=== PATIENT | male | born 1955 | race African-American/Black ===

== ENCOUNTER 2021-05-29 10:52 | Emergency (ER) | payer OTHER, BC ==
[~2021-05-29] VITALS: Ht 188 cm; Wt 108.4 kg
[2021-05-29] MEDS ORDERED: METHOCARBAMOL 750 MG TAB PO ONE (11:30)
[2021-05-29] MEDS ORDERED: HYDROCODONE/APAP 5MG-325MG TAB PO ONE (11:30)
[2021-05-29] MEDS ORDERED: ANAPROX DS550 MG PO (12:18)
[2021-05-29] MEDS ORDERED: PREDNISONE50 MG PO (12:19)
[2021-05-29] MEDS ORDERED: METHOCARBAMOL750 MG PO (12:19)
== END 2021-05-29 12:45 | disposition home or self-care (01) ==
LOC: ER 11:21
DX: M54.12 Radiculopathy, cervical region (principal); R73.03 Prediabetes; Y93.89 Activity, other specified; Y92.69 Other specified industrial and construction area as the place of occurrence of the external cause
CPT/HCPCS: 72040; 99283

== ENCOUNTER 2024-02-03 13:25 | Inpatient (IN) | payer BC, MEDICARE, OTHER ==
[~2024-02-03] VITALS: Ht 188 cm; Wt 113.9 kg
[2024-02-03] VITALS (23 sets, daily range): BP systolic 81–162; BP diastolic 54–131; PULSE 30–110; RESP 17–42; TEMP 97–98.8; O2SAT 96–100
[~2024-02-03 13:25] MED LIST: ANAPROX DS550 MG PO; METHOCARBAMOL750 MG PO; PREDNISONE50 MG PO
[2024-02-03] MEDS ORDERED: SODIUM CHLORIDE 0.9% 1000ML 1,000 ML IV SCH (13:30)
[2024-02-03] MEDS ORDERED: NITROGLYCERIN/D5W 200 MCG/ML 250 ML ONE (14:03)
[2024-02-03] MEDS ORDERED: FUROSEMIDE INJ 10 MG/ML 2 ML VIAL ONE (14:03)
[2024-02-03] MEDS ORDERED: NITROGLYCERIN 2% OINT 1 GM PKT ONE (14:07)
[2024-02-03 14:13] LABS: BASOPHILS # (AUTO) 0.1 (0.0-0.1); BASOPHILS % 0.6 % (0.0-1.0); HEMATOCRIT 53.2 % (38.2-49.6); HEMOGLOBIN 17.3 g/dL (14.0-18.0); LYMPHOCYTES # (AUTO) 4.5 (1.0-3.2); MEAN CORPUSCULAR HEMOGLOBIN 27.8 pg (28-32); MEAN CORPUSCULAR HGB CONC 32.5 g/dL (31-35); MEAN CORPUSCULAR VOLUME 85.5 fL (81-99); MONOCYTES # (AUTO) 1.6 (0.2-0.8); NEUTROPHILS # (AUTO) 4.6 (2.1-6.9); NEUTROPHILS % 42.7 % (38.7-80.0); PLATELET COUNT 225 x10e3/uL (140-360); RED BLOOD COUNT 6.22 x10e6/uL (4.3-5.7); RED CELL DISTRIBUTION WIDTH 18.9 % (11.7-14.4); WHITE BLOOD COUNT 10.89 x10e3/uL (4.8-10.8)
[2024-02-03] MEDS: NITROGLYCERIN/D5W 200 MCG/ML 250 ML IV SCH (14:16)
[2024-02-03] MEDS ORDERED: KETOROLAC TROMETHAMINE 30 MG/ML VIAL ONE (14:23)
[2024-02-03] MEDS: KETOROLAC TROMETHAMINE 30 MG/ML VIAL IV STA (14:23)
[2024-02-03 14:30] LABS: ALBUMIN 3.9 g/dL (3.5-5.0); ALBUMIN/GLOBULIN RATIO 0.9 (0.8-2.0); ANION GAP 26.4 mmol/L (8-16); BILIRUBIN,TOTAL 0.7 mg/dL (0.2-1.2); CALCIUM 9.4 mg/dL (8.4-10.2); CREATININE, SERUM 1.36 mg/dL (0.72-1.25); TOTAL PROTEIN 8.4 g/dL (6.5-8.1)
[2024-02-03 14:32] LABS: POTASSIUM 3.4 mmol/L (3.5-5.1)
[2024-02-03 14:36] LABS: TROPONIN I 0.292 ng/mL (0-0.300)
[2024-02-03] MEDS ORDERED: LORAZEPAM INJ 2 MG/ML VIAL ONE (14:36)
[2024-02-03 14:41] LABS: INFLUENZAE A&B ANTIGEN (RAPID) NEGATIVE (NEGATIVE); RESPIRATORY SYNC. VIRUS NEGATIVE (NEGATIVE)
[2024-02-03] MEDS: FUROSEMIDE INJ 10 MG/ML 4 ML VIAL IV ONE (15:30)
[2024-02-03] MEDS: LORAZEPAM INJ 2 MG/ML VIAL IV ONE (15:31)
[2024-02-03 16:09] LABS: ANISOCYTOSIS SLIGHT; BASOPHILS % (MANUAL) 1 % (0-1.5); LYMPHOCYTES % (MANUAL) 45 % (19-48); MONOCYTES % (MANUAL) 12 % (3.4-9.0); NEUTROPHILS % (MANUAL) 36 % (40-74); REACTIVE LYMPHOCYTES 6
[2024-02-03 16:10] LABS: PLATELET ESTIMATE ADEQUATE; PLATELET MORPHOLOGY COMMENT NORMAL; RBC MORPHOLOGY COMMENT ABNORMAL; STOMATOCYTES MODERATE
[2024-02-03 16:13] LABS: ABG PCO2 50 mmHg (35-45); ABG PH 7.33 (7.35-7.45); ABG PO2 225 mmHg (80-105)
[2024-02-03 16:14] LABS: ABG HCO3 26 mmol/L (22-26); ABG TCO2 28
[2024-02-03] MEDS ORDERED: MELOXICAM7.5 MG PO (18:24)
[2024-02-03] MEDS ORDERED: MIRTAZAPINE15 MG PO (18:31)
[2024-02-03] MEDS ORDERED: QUETIAPINE FUM100 MG PO (18:31)
[2024-02-03] MEDS ORDERED: DIOVAN160 MG PO (18:31)
[2024-02-03] MEDS ORDERED: HYDROCHLOROTHIA25 MG PO (18:31)
[2024-02-03] MEDS ORDERED: ASPIRIN EC81 MG PO (18:31)
[2024-02-03] MEDS ORDERED: FINASTERIDE5 MG PO (18:36)
[2024-02-03] MEDS ORDERED: TESTOSTERO200 MG/1 M IM (18:36)
[2024-02-03] MEDS ORDERED: ROSUVASTATIN (18:36)
[2024-02-03] MEDS ORDERED: ZETIA10 MG PO (19:01)
[2024-02-03] MEDS ORDERED: GABAPENTIN100 MG PO (19:05)
[2024-02-03] MEDS ORDERED: SIMVASTATIN40 MG PO (19:08)
[2024-02-03] MEDS ORDERED: ROSUVASTATIN CA40 MG PO (19:18)
[2024-02-03] MEDS ORDERED: HYDROCODON-ACE1 EAC9 PO (19:20)
[2024-02-03] MEDS ORDERED: HYDROCHLOROTHIA25 MG (19:27)
[2024-02-03] MEDS ORDERED: IBUPROFEN800 MG PO (19:59)
[2024-02-03] MEDS ORDERED: GABAPENTIN300 MG PO (20:00)
[2024-02-03] MEDS: CARVEDILOL 12.5 MG TAB PO SCH (20:10)
[2024-02-03] MEDS ORDERED: ACETAMINOPHEN 325 MG TAB PO PRN (22:00)
[2024-02-03] MEDS ORDERED: MELATONIN 3 MG TAB PO PRN (22:00)
[2024-02-03] MEDS ORDERED: MAGNESIUM/ALUMINUM/SIMETHICONE 30 ML UDC PO PRN (22:00)
[2024-02-03] MEDS ORDERED: HYDRALAZINE HCL 20 MG/ML VIAL IV PRN (22:00)
[2024-02-03] MEDS ORDERED: GUAIFENESIN/DEXTROMETHORPHAN LIQD 5 ML UDC PO PRN (22:00)
[2024-02-03] MEDS ORDERED: ONDANSETRON HCL INJ 2MG/ML 2ML 2 MG/ML VIAL IV PRN (22:00)
[2024-02-04] VITALS (81 sets, daily range): BP systolic 66–229; BP diastolic 45–195; PULSE 47–134; RESP 19–45; TEMP 98.4–100.3; O2SAT 90–100
[2024-02-04 06:38] LABS: BASOPHILS % 0.3 % (0.0-1.0); EOSINOPHILS % 0.1 % (0.0-6.0); HEMATOCRIT 44.8 % (38.2-49.6); HEMOGLOBIN 14.8 g/dL (14.0-18.0); LYMPHOCYTES # (AUTO) 2.2 (1.0-3.2); LYMPHOCYTES % 29.2 % (18.0-39.1); MEAN CORPUSCULAR HEMOGLOBIN 27.9 pg (28-32); MEAN CORPUSCULAR VOLUME 84.5 fL (81-99); MONOCYTES # (AUTO) 0.6 (0.2-0.8); NEUTROPHILS # (AUTO) 4.7 (2.1-6.9); PLATELET COUNT 176 x10e3/uL (140-360); WHITE BLOOD COUNT 7.58 x10e3/uL (4.8-10.8)
[2024-02-04 07:00] LABS: ANION GAP 15.9 mmol/L (8-16); CALCIUM 8.7 mg/dL (8.4-10.2); CREATININE, SERUM 0.89 mg/dL (0.72-1.25); POTASSIUM 3.9 mmol/L (3.5-5.1)
[2024-02-04] MEDS: EZETIMIBE 10 MG TAB PO SCH (08:06)
[2024-02-04] MEDS: MULTIVITAMINS/MINERALS TAB PO SCH (08:06)
[2024-02-04] MEDS: HYDROCODONE/APAP 5MG-325MG TAB PO PRN (08:08)
[2024-02-04] MEDS: VALSARTAN 160 MG TAB PO SCH (08:08)
[2024-02-04] MEDS: GABAPENTIN 300 MG CAP PO SCH (08:08)
[2024-02-04] MEDS: ASPIRIN 81 MG ENTERIC COATED PO SCH (08:09)
[2024-02-04] MEDS: CARVEDILOL 12.5 MG TAB PO SCH (08:09)
[2024-02-04] MEDS: FINASTERIDE 5 MG TAB PO SCH (08:09)
[2024-02-04 08:12] LABS: HIV 1&2 AB SCREEN NON-REACTIVE (NONREACTIVE)
[2024-02-04 08:18] LABS: BAND NEUTROPHILS % (MANUAL) 2 %; LYMPHOCYTES % (MANUAL) 22 % (19-48); MONOCYTES % (MANUAL) 6 % (3.4-9.0); NEUTROPHILS % (MANUAL) 66 % (40-74); REACTIVE LYMPHOCYTES 4
[2024-02-04 08:19] LABS: ANISOCYTOSIS SLIGHT; HYPOCHROMASIA SLIGHT; PLATELET ESTIMATE ADEQUATE; PLATELET MORPHOLOGY COMMENT NORMAL; RBC MORPHOLOGY COMMENT NORMAL
[2024-02-04] MEDS ORDERED: LORAZEPAM INJ 2 MG/ML VIAL ONE (08:21)
[2024-02-04] MEDS: FUROSEMIDE INJ 10 MG/ML 4 ML VIAL IV ONE (08:30)
[2024-02-04] MEDS: LORAZEPAM INJ 2 MG/ML VIAL IV ONE ×2 (08:33→11:08)
[2024-02-04] MEDS ORDERED: LABETALOL HCL 20 ML ONE (08:55)
[2024-02-04 09:12] LABS: ABG HCO3 31 mmol/L (22-26); ABG PCO2 62 mmHg (35-45); ABG PO2 222 mmHg (80-105)
[2024-02-04 09:13] LABS: ABG TCO2 32
[2024-02-04] MEDS: LABETALOL HCL 5 MG/ML 20ML VIAL IV ONE (09:20)
[2024-02-04] MEDS: DEXMEDETOMIDINE 400MCG/NS100ML 100 ML IV PRN (09:50)
[2024-02-04] MEDS: LACTATED RINGER'S 1,000 ML IV ONE (11:09)
[2024-02-04 11:57] LABS: ABG HCO3 24 mmol/L (22-26); ABG PCO2 43 mmHg (35-45); ABG PH 7.36 (7.35-7.45); ABG PO2 60 mmHg (80-105); ABG TCO2 25
[2024-02-04] MEDS: IPRATROPIUM BROMIDE 0.02% 2.5 ML NEB NEB SCH (12:00)
[2024-02-04] MEDS: VANCOMYCIN 1.25GM/250 ML (PEG) 250 ML IV ONE (12:52)
[2024-02-04] MEDS: METHYLPREDNISOLONE SOD SUCC 40 MG/ML VIAL 1ML IV SCH (13:20)
[2024-02-04] MEDS: GABAPENTIN 100 MG CAP PO SCH (17:00)
[2024-02-04] MEDS: ENOXAPARIN SOD INJ 40 MG/0.4 ML SYR SC SCH (19:29)
[2024-02-04] MEDS: SODIUM CHLORIDE 0.9% 250ML 250 ML IV ONE (19:58)
[2024-02-04] MEDS: ALBUTEROL SULF 0.083% NEB SOLN 3 ML NEB NEB PRN (20:12)
[2024-02-04] MEDS: MIRTAZAPINE 15 MG TAB PO SCH (21:00)
[2024-02-04] MEDS: CRESTOR 10MG PO SCH (21:00)
[2024-02-04] MEDS: QUETIAPINE FUMARATE 100 MG TAB PO SCH (21:00)
[2024-02-05] VITALS (23 sets, daily range): BP systolic 85–158; BP diastolic 61–115; PULSE 62–85; RESP 19–27; TEMP 97.7–99.3; O2SAT 95–100
[2024-02-05 06:29] LABS: BASOPHILS % 0.1 % (0.0-1.0); HEMATOCRIT 40.4 % (38.2-49.6); HEMOGLOBIN 13.8 g/dL (14.0-18.0); LYMPHOCYTES # (AUTO) 2.4 (1.0-3.2); LYMPHOCYTES % 29.1 % (18.0-39.1); MEAN CORPUSCULAR HEMOGLOBIN 28.3 pg (28-32); MEAN CORPUSCULAR HGB CONC 34.2 g/dL (31-35); MEAN CORPUSCULAR VOLUME 82.8 fL (81-99); MONOCYTES # (AUTO) 0.9 (0.2-0.8); MONOCYTES % 10.9 % (4.4-11.3); NEUTROPHILS % 59.7 % (38.7-80.0); PLATELET COUNT 214 x10e3/uL (140-360); RED BLOOD COUNT 4.88 x10e6/uL (4.3-5.7); RED CELL DISTRIBUTION WIDTH 17.2 % (11.7-14.4); WHITE BLOOD COUNT 8.33 x10e3/uL (4.8-10.8)
[2024-02-05 06:57] LABS: BILIRUBIN,URINE NEGATIVE (NEGATIVE); CLARITY,URINE CLEAR (CLEAR); COLOR,URINE YELLOW (YELLOW); GLUCOSE, URINE NEGATIVE (NEGATIVE); KETONES,URINE NEGATIVE (NEGATIVE); LEUKOCYTE ESTERASE ,URINE NEGATIVE (NEGATIVE); NITRITE,URINE NEGATIVE (NEGATIVE); PH,URINE 6 (5 - 7); PROTEIN,URINE DIPSTICK NEGATIVE (NEGATIVE); URINE UROBILINOGEN 0.2 mg/dL (0.2 - 1)
[2024-02-05 07:09] LABS: ALBUMIN 2.9 g/dL (3.5-5.0); ALBUMIN/GLOBULIN RATIO 0.8 (0.8-2.0); ANION GAP 13.9 mmol/L (8-16); BACTERIA,URINE FEW /HPF; BILIRUBIN,TOTAL 0.6 mg/dL (0.2-1.2); CALCIUM 8.6 mg/dL (8.4-10.2); CREATININE, SERUM 0.9 mg/dL (0.72-1.25); EPITHELIAL CELLS,URINE RARE /LPF; POTASSIUM 3.9 mmol/L (3.5-5.1); TOTAL PROTEIN 6.4 g/dL (6.5-8.1)
[2024-02-05] MEDS: DOCUSATE SODIUM 100 MG CAP PO PRN (12:28)
[2024-02-06] VITALS (15 sets, daily range): BP systolic 106–137; BP diastolic 57–86; PULSE 66–82; RESP 18–23; TEMP 97.8; O2SAT 94–100
[2024-02-06] MEDS ORDERED: AMOX TR-K CLV1 EAC2 PO (12:49)
[2024-02-06] MEDS ORDERED: VENTOLIN HFA18 GM INH (12:49)
[2024-02-06] MEDS: AMOXICILLIN/CLAVULANATE K 875 MG TAB PO SCH (14:23)
== END 2024-02-06 14:32 | disposition home or self-care (01) | DRG 193 ==
LOC: ER 13:28 → ERHOLD 14:33 → ICU 16:06
PROVIDERS: ADMIT Internal Medicine; ATTEND Internal Medicine
PROC: 02HV33Z Insertion of Infusion Device into Superior Vena Cava, Percutaneous Approach (ICD-10-PCS; principal; 2024-02-03)
PROC: 5A09357 Assistance with Respiratory Ventilation, Less than 24 Consecutive Hours, Continuous Positive Airway Pressure (ICD-10-PCS; 2024-02-03)
DX: J18.9 Pneumonia, unspecified organism (principal); G93.41 Metabolic encephalopathy; J96.01 Acute respiratory failure with hypoxia; J96.02 Acute respiratory failure with hypercapnia; I13.0 Hypertensive heart and chronic kidney disease with heart failure and stage 1 through stage 4 chronic kidney disease, or unspecified chronic kidney disease; I50.31 Acute diastolic (congestive) heart failure; N17.9 Acute kidney failure, unspecified; E87.20 Acidosis, unspecified; I16.1 Hypertensive emergency; E11.22 Type 2 diabetes mellitus with diabetic chronic kidney disease; N18.4 Chronic kidney disease, stage 4 (severe); D72.820 Lymphocytosis (symptomatic); F41.9 Anxiety disorder, unspecified; M54.9 Dorsalgia, unspecified; Z11.52 Encounter for screening for COVID-19; Z79.82 Long term (current) use of aspirin; Z82.49 Family history of ischemic heart disease and other diseases of the circulatory system
CPT/HCPCS: 36415; 36569; 36600; 71045; 80048; 80053; 81001; 82805; 83036; 83605; 83880; 84484; 85025; 87040; 87390; 87400; 87420; 93005; 93306; 94660; 94799; 99285; G0433; G0435; J0696; J1650; J1885; J1940; J2060; J2919; J7030; J7050; U0002

== ENCOUNTER 2024-07-22 11:02 | Inpatient (IN) | payer MEDICARE ==
[~2024-07-22] VITALS: Ht 188 cm; Wt 112.5 kg
[2024-07-22] VITALS (21 sets, daily range): BP systolic 113–170; BP diastolic 68–102; PULSE 78–95; RESP 16–28; TEMP 98–98.1; O2SAT 92–99
[~2024-07-22 11:02] MED LIST changes: +AMOX TR-K CLV1 EAC2 PO; +ASPIRIN EC81 MG PO; +DIOVAN160 MG PO; +FINASTERIDE5 MG PO; +GABAPENTIN100 MG PO; +GABAPENTIN300 MG PO; +HYDROCHLOROTHIA25 MG; +HYDROCHLOROTHIA25 MG PO; +HYDROCODON-ACE1 EAC9 PO; +IBUPROFEN800 MG PO; +MELOXICAM7.5 MG PO; +MIRTAZAPINE15 MG PO; +QUETIAPINE FUM100 MG PO; +ROSUVASTATIN; +ROSUVASTATIN CA40 MG PO; +SIMVASTATIN40 MG PO; +TESTOSTERO200 MG/1 M IM; +VENTOLIN HFA18 GM INH; +ZETIA10 MG PO
[2024-07-22] MEDS ORDERED: ALBUTEROL/IPRATROPIUM 3 ML NEB ONE (11:22)
[2024-07-22] MEDS: ALBUTEROL/IPRATROPIUM 3 ML NEB NEB ONE (11:45)
[2024-07-22] MEDS: FUROSEMIDE INJ 10 MG/ML 4 ML VIAL IV ONE (11:47)
[2024-07-22] MEDS ORDERED: NITROGLYCERIN 2% OINT 1 GM PKT ONE (11:48)
[2024-07-22] MEDS: NITROGLYCERIN 2% OINT 1 GM PKT TOP ONE (11:57)
[2024-07-22] MEDS ORDERED: ACETAMINOPHEN 325 MG TAB PO PRN (12:45)
[2024-07-22] MEDS ORDERED: SODIUM CHLORIDE FLUSH 10 ML SYR INJ PRN (12:45)
[2024-07-22] MEDS ORDERED: HYDRALAZINE HCL 20 MG/ML VIAL IV PRN (12:45)
[2024-07-22] MEDS ORDERED: DEXTROSE 50% SYRINGE 50 ML IV PRN (12:45)
[2024-07-22] MEDS ORDERED: ONDANSETRON HCL INJ 2MG/ML 2ML 2 MG/ML VIAL IV PRN (12:45)
[2024-07-22] MEDS: LEVOFLOXACIN 500MG/D5W 100ML 100 ML IV SCH (14:30)
[2024-07-22] MEDS: ASPIRIN 81 MG CHEW TAB PO ONE (14:30)
[2024-07-22] MEDS ORDERED: ALBUTEROL/IPRATROPIUM 3 ML NEB NEB PRN (15:00)
[2024-07-22] MEDS: LABETALOL HCL 5 MG/ML 20ML VIAL IV STA (15:08)
[2024-07-22] MEDS ORDERED: IOPAMIDOL 370 MG/ML 100 ML INFUS..BTL INJ ONE (15:09)
[2024-07-22] MEDS: MUPIROCIN 2% OINT 22 GM TUBE TOP SCH (15:13)
[2024-07-22] MEDS: HYDROCODONE/APAP 10MG-325MG TAB PO PRN (15:14)
[2024-07-22 15:30] LABS: BASOPHILS % 0.3 % (0.0-1.0); EOSINOPHILS % 0.1 % (0.0-6.0); HEMATOCRIT 49.5 % (38.2-49.6); HEMOGLOBIN 16.7 g/dL (14.0-18.0); LYMPHOCYTES # (AUTO) 1.3 (1.0-3.2); LYMPHOCYTES % 9.6 % (18.0-39.1); MEAN CORPUSCULAR HEMOGLOBIN 28.9 pg (28-32); MEAN CORPUSCULAR HGB CONC 33.7 g/dL (31-35); MEAN CORPUSCULAR VOLUME 85.6 fL (81-99); MONOCYTES # (AUTO) 0.8 (0.2-0.8); MONOCYTES % 5.8 % (4.4-11.3); NEUTROPHILS # (AUTO) 11.1 (2.1-6.9); NEUTROPHILS % 83.8 % (38.7-80.0); PLATELET COUNT 245 x10e3/uL (140-360); RED BLOOD COUNT 5.78 x10e6/uL (4.3-5.7); WHITE BLOOD COUNT 13.21 x10e3/uL (4.8-10.8)
[2024-07-22 15:58] LABS: ANION GAP 15.1 mmol/L (8-16); CALCIUM 9.1 mg/dL (8.4-10.2); CREATININE, SERUM 1.04 mg/dL (0.72-1.25); POTASSIUM 4.1 mmol/L (3.5-5.1)
[2024-07-22] MEDS: INSULIN REGULAR, HUMAN 100 UNIT/1 ML SQ SCH (16:40)
[2024-07-22] MEDS: FAMOTIDINE 20 MG/2 ML VIAL IV SCH (16:41)
[2024-07-22] MEDS: GABAPENTIN 300 MG CAP PO SCH (16:42)
[2024-07-22] MEDS: CARVEDILOL 3.125 MG TAB PO SCH (16:42)
[2024-07-22] MEDS: LOSARTAN POTASSIUM 25 MG TAB PO SCH (16:42)
[2024-07-22] MEDS: ENOXAPARIN SOD INJ 40 MG/0.4 ML SYR SC SCH (16:43)
[2024-07-22 16:50] LABS: TROPONIN I 0.287 ng/mL (0-0.300)
[2024-07-22] MEDS: FUROSEMIDE INJ 10 MG/ML 4 ML VIAL IV SCH (17:02)
[2024-07-22] MEDS ORDERED: ALBUTEROL/IPRATROPIUM 3 ML NEB NEB SCH (19:00)
[2024-07-22] MEDS ORDERED: CRESTOR40 MG PO (19:27)
[2024-07-22] MEDS ORDERED: CYMBALTA30 MG PO (19:27)
[2024-07-22] MEDS ORDERED: METFORMIN HCL500 MG PO (19:27)
[2024-07-23] VITALS (17 sets, daily range): BP systolic 121–171; BP diastolic 85–104; PULSE 60–82; RESP 14–28; TEMP 98.1–98.2; O2SAT 91–99
[2024-07-23] MEDS: DIPHENHYDRAMINE HCL INJ 50 MG/ML VIAL IV PRN (00:20)
[2024-07-23 07:21] LABS: BASOPHILS % 0.3 % (0.0-1.0); EOSINOPHILS # (AUTO) 0.1 (0.0-0.4); EOSINOPHILS % 0.5 % (0.0-6.0); HEMATOCRIT 48.8 % (38.2-49.6); LYMPHOCYTES # (AUTO) 2.9 (1.0-3.2); LYMPHOCYTES % 27.5 % (18.0-39.1); MEAN CORPUSCULAR HEMOGLOBIN 29.7 pg (28-32); MEAN CORPUSCULAR HGB CONC 34.8 g/dL (31-35); MEAN CORPUSCULAR VOLUME 85.3 fL (81-99); MONOCYTES # (AUTO) 0.6 (0.2-0.8); MONOCYTES % 5.8 % (4.4-11.3); NEUTROPHILS % 65.6 % (38.7-80.0); PLATELET COUNT 273 x10e3/uL (140-360); RED BLOOD COUNT 5.72 x10e6/uL (4.3-5.7); RED CELL DISTRIBUTION WIDTH 15.5 % (11.7-14.4); WHITE BLOOD COUNT 10.61 x10e3/uL (4.8-10.8)
[2024-07-23 07:38] LABS: ANION GAP 19.6 mmol/L (8-16); CALCIUM 9.5 mg/dL (8.4-10.2); CREATININE, SERUM 1.15 mg/dL (0.72-1.25); POTASSIUM 3.6 mmol/L (3.5-5.1)
[2024-07-23 08:48] LABS: TROPONIN I 0.887 ng/mL (0-0.300)
[2024-07-23] MEDS ORDERED: VALSARTAN 160 MG TAB PO SCH (09:00)
[2024-07-23] MEDS: ASPIRIN 81 MG ENTERIC COATED PO SCH (09:54)
[2024-07-23] MEDS: FINASTERIDE 5 MG TAB PO SCH (09:54)
[2024-07-23] MEDS: CRESTOR 10MG PO SCH (09:54)
[2024-07-23] MEDS: EZETIMIBE 10 MG TAB PO SCH (09:54)
[2024-07-23] MEDS: QUETIAPINE 200 MG PO SCH (20:56)
[2024-07-24] VITALS (10 sets, daily range): BP systolic 106–140; BP diastolic 78–89; PULSE 64–79; RESP 17–20; TEMP 97.8–98.1; O2SAT 93–99
[2024-07-24 08:10] LABS: BASOPHILS # (AUTO) 0.1 (0.0-0.1); BASOPHILS % 0.6 % (0.0-1.0); EOSINOPHILS # (AUTO) 0.1 (0.0-0.4); EOSINOPHILS % 1.2 % (0.0-6.0); HEMATOCRIT 49.9 % (38.2-49.6); LYMPHOCYTES # (AUTO) 3.8 (1.0-3.2); LYMPHOCYTES % 41.8 % (18.0-39.1); MEAN CORPUSCULAR HGB CONC 34.1 g/dL (31-35); MEAN CORPUSCULAR VOLUME 85.2 fL (81-99); MONOCYTES # (AUTO) 0.8 (0.2-0.8); MONOCYTES % 8.3 % (4.4-11.3); NEUTROPHILS # (AUTO) 4.3 (2.1-6.9); NEUTROPHILS % 47.9 % (38.7-80.0); PLATELET COUNT 263 x10e3/uL (140-360); RED BLOOD COUNT 5.86 x10e6/uL (4.3-5.7); RED CELL DISTRIBUTION WIDTH 15.7 % (11.7-14.4); WHITE BLOOD COUNT 8.99 x10e3/uL (4.8-10.8)
[2024-07-24 08:39] LABS: ANION GAP 16.1 mmol/L (8-16); CALCIUM 10.2 mg/dL (8.4-10.2); CREATININE, SERUM 1.2 mg/dL (0.72-1.25); POTASSIUM 4.1 mmol/L (3.5-5.1)
[2024-07-24] MEDS: LEVOFLOXACIN 500 MG TAB PO SCH (12:45)
[2024-07-24] MEDS: [UNRECOGNIZED DRUG - OTHER] PO SCH (17:54)
[2024-07-24] MEDS: VALSARTAN PO SCH (17:54)
[2024-07-24] MEDS ORDERED: COREG3.125 MG PO (18:21)
[2024-07-24] MEDS ORDERED: BENZONATATE100 MG PO (18:21)
[2024-07-24] MEDS ORDERED: ZITHROMAX500 MG PO (18:21)
[2024-07-24] MEDS ORDERED: CEPHALEXIN500 MG PO (18:21)
[2024-07-24] MEDS ORDERED: ENTRESTO 97 MG1 EACH PO (18:21)
[2024-07-25] MEDS ORDERED: LEVOFLOXACIN 500 MG TAB PO SCH (12:45)
== END 2024-07-24 19:07 | disposition home or self-care (01) | DRG 291 ==
LOC: FSED 11:14 → EDBD 11:14 → ERHOLD 12:42 → ICU 14:48 → MED/SURG2 07-24 06:27
PROVIDERS: ADMIT Internal Medicine; ATTEND Internal Medicine
DX: I13.0 Hypertensive heart and chronic kidney disease with heart failure and stage 1 through stage 4 chronic kidney disease, or unspecified chronic kidney disease (principal); I50.33 Acute on chronic diastolic (congestive) heart failure; J96.01 Acute respiratory failure with hypoxia; J18.9 Pneumonia, unspecified organism; M62.82 Rhabdomyolysis; I16.1 Hypertensive emergency; E11.22 Type 2 diabetes mellitus with diabetic chronic kidney disease; E11.65 Type 2 diabetes mellitus with hyperglycemia; E78.00 Pure hypercholesterolemia, unspecified; N18.9 Chronic kidney disease, unspecified; J44.9 Chronic obstructive pulmonary disease, unspecified; F41.9 Anxiety disorder, unspecified; Z11.52 Encounter for screening for COVID-19; M54.9 Dorsalgia, unspecified; M54.2 Cervicalgia; E66.9 Obesity, unspecified; Z68.31 Body mass index [BMI] 31.0-31.9, adult; Z79.82 Long term (current) use of aspirin; Z88.4 Allergy status to anesthetic agent
CPT/HCPCS: 0223U; 36415; 71045; 71260; 80048; 82550; 82948; 84484; 85025; 87040; 87400; 93005; 93306; 94760; 94799; 96372; 96374; 99252; 99285; J1200; J1650; J1940; J1956; Q9967